=== PATIENT | female | born 1965 | race Caucasian/White ===

== ENCOUNTER → 2018-06-29 | Outpatient (CLI) | payer OTHER ==
--- NOTE | 2018-06-29 13:52 | RAD ---
Three-view right knee dated 06/29/2018. No comparison available. CLINICAL INDICATION: Pain after injury. FINDINGS: 3 views right knee show normal bony alignment. No displaced fracture. Mild tricompartmental hypertrophic change with small marginal osteophytes. No significant joint effusion. There is a prominent loose body at the posterior joint space. IMPRESSION: 1. No acute radiographic abnormality. 2. 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 Electronically signed by: Helder Covington MD (06/29/2018 1:49 PM) [id number]
== END | disposition home or self-care (01) ==
LOC: DXRAD 13:34
PROVIDERS: ATTEND Family Medicine
DX: M25.761 Osteophyte, right knee (principal)
CPT/HCPCS: 73562